=== PATIENT | female | born 1930 | race Caucasian/White ===

== ENCOUNTER 2017-07-26 14:22 | Emergency (ER) | payer MEDICARE ==
--- NOTE | 2017-07-26 14:26 | Emergency Department Record ---
History of Present Illness - General Stated Complaint: DIZZY/CHEST PAIN Time Seen by Provider: 07/26/17 14:23 Source: Patient, Family Mode of Arrival: Ambulatory Limitations: No limitations - History of Present Illness Initial Comments: 86 yo female presents from the [facility] with dizziness. Over the last 2 weeks she is having episodes of dizziness that is light room spinning. The episodes come and go. They last a few minutes when they occur. No syncope. No weakness of the face, arms or legs. No vision or speech changes. No shortness of breath. No history of stroke. She does have CAD with one prior stent. She had a normal Lexiscan on 04/24/17 this year. She has had some chest pain that she can only describe as feeling like "fingers spreading on her chest ". It is not with activity or exertion. It occurs 1-2 per day lasting a few minutes at most. It is not associated with the room spinning feeling. Nothing seems to bring on the pain or resolve it. Deep breathing improves the pain. She is not short of breath. MD Complaint: Dizziness -: Week(s) (2) Timing: Now resolved Description: Other (Occurred randomly ) History of Same: No History of Trauma: No Severity: Moderate Improves With: Remaining still Worsens With: Movement - [place] Coma Scale Eye Response: (4) Open spontaneously Motor Response: (6) Obeys commands Verbal Response: (5) Oriented Marshal Total: 15 - Symptoms of Stroke Symptoms of stroke: Dizziness - Related Data Home Medications Medication Instructions Recorded Confirmed Last Taken Acetaminophen [Tylenol Extra 500 mg PO QHS 07/26/17 07/26/17 Unknown Strength] Furosemide [Lasix] 40 mg PO DAILY 07/26/17 07/26/17 Unknown Meloxicam [Mobic] 15 mg PO DAILY 07/26/17 07/26/17 Unknown Omeprazole 10 mg PO DAILY 07/26/17 07/26/17 Unknown Prednisone 2.5 mg PO ASDIR 07/26/17 07/26/17 Unknown Tramadol HCl 1 - 2 tab PO Q6H PRN 07/26/17 07/26/17 Unknown Allergies Allergy/AdvReac Type Severity Reaction Status Date / Time codeine Allergy Unknown ALTERED Verified 07/26/17 14:25 MENTAL STATUS Review of Systems Constitutional: Denies: Chills, Fever, Malaise, Weakness Eyes: Denies: Eye discharge ENT: Denies: Congestion, Throat pain Respiratory: Denies: Cough, Dyspnea, Hemoptysis Cardiovascular: Reports: Chest pain. Denies: Arrhythmia, Dyspnea on exertion, Edema, Palpitations, Syncope Endocrine: Denies: Fatigue Gastrointestinal: Reports: Nausea. Denies: Abdominal pain, Diarrhea, Vomiting Genitourinary: Denies: Dysuria, Urgency Musculoskeletal: Denies: Arthralgia, Back pain, Myalgia, Neck pain Skin: Denies: Bruising, Change in color, Rash Neurological: Reports: Headache (occasional rare and mild), Vertigo. Denies: Abnormal gait, Confusion, Numbness, Paresthesias, Seizure, Tingling, Tremors, Weakness Psychiatric: Denies: Anxiety Hematological/Lymphatic: Denies: Anemia, Blood Clots, Easy bleeding, Easy bruising, Swollen glands Past Medical History - SOCIAL HISTORY Smoking Status: Never smoker - RESPIRATORY Hx Respiratory Disorders: No - CARDIOVASCULAR Hx Cardio Disorders: Yes Hx Cardiac Cath: Yes Hx Hypertension: Yes Comment:: hypercholesteremia - NEURO Hx Neuro Disorders: Yes Hx Neuropathy: Yes - GI Hx GI Disorders: Yes Hx Reflux: Yes Hx Ulcer: Yes - Hx Genitourinary Disorders: Yes Hx Bladder Problem: Yes - ENDOCRINE Hx Endocrine Disorders: Yes Hx Diabetes: Yes - MUSCULOSKELETAL Hx Musculoskeletal Disorders: Yes Hx Arthritis: Yes - PSYCH Hx Psych Problems: No - HEMATOLOGY/ONCOLOGY Hx Hematology/Oncology Disorders: Yes Hx Cancer: Yes (bladder) Physical Exam - General General Appearance: Alert, Oriented x3, Cooperative, No acute distress Limitations: No limitations - Head Head exam: Atraumatic, Normocephalic, Normal inspection - Eye Eye exam: Normal appearance, PERRL, EOMI, Nystagmus (righward gaze). negative: Conjunctival injection, Periorbital swelling, Periorbital tenderness Pupils: Normal accommodation. negative: Irregular, Unequal - ENT ENT exam: Normal exam, Mucous membranes moist Ear exam: Normal external inspection Nasal Exam: Normal inspection Mouth exam: Normal external inspection - Neck Neck exam: Normal inspection, Full ROM. negative: Tenderness - Respiratory Respiratory exam: Normal lung sounds bilaterally. negative: Respiratory distress - Cardiovascular Cardiovascular Exam: Regular rate, Normal rhythm, Normal heart sounds Peripheral Pulses: 2+: Radial (R), Radial (L) - GI/Abdominal GI/Abdominal exam: Soft. negative: Tenderness - Rectal Rectal exam: Deferred - exam: Deferred - Extremities Extremities exam: Normal inspection, Full ROM, Normal capillary refill. negative: Pedal edema, Tenderness - Back Back exam: Reports: Normal inspection, Full ROM. Denies: Muscle spasm, Rash noted, Tenderness - Neurological Neurological exam: Alert, CN II-XII intact, Normal gait, Oriented X3, Reflexes normal. negative: Altered, Motor sensory deficit - Psychiatric Psychiatric exam: Normal affect, Normal mood. negative: Agitated, Anxious - Skin Skin exam: Dry, Intact, Normal color, Warm Course - Reevaluation(s) Reevaluation #1: 07/26/17 14:45 EKG NSR, rate 68, intervals normal, axis left, ST NS anterior changes. comparison 04/24/17 similar 07/26/17 14:47 The labs were reviewed No acute changes on the labs The CBC,CMP,Tropoinn are negative 07/26/17 15:35 Reevaluation #2: The Head CT scan was read as no acute changes. Chronic small vessel white mater changes. No sign of stroke, mass, or hemorrhage I [facility] Appointment was made for 07/[address] Santos 07/26/17 15:39 07/26/17 15:52 I discussed the results with the patient and her sister I offered admit her for further observation of her symptoms in the hospital or transfer her to [facility] We discussed this could be vertigo but other causes can not be fully ruled out. She stated she is not willing to stay in the hospital at this time and prefers follow up as an outpatient Her chest symptoms are very atypical and she had a normal perfusion stress test in April. She lives with her sister and states she feels very safe and prefers CT home to follow up. We discussed that the ED is always available for a re- evaluation if she has any concerns. Medical Decision Making - Lab Data Result diagrams: 07/26/17 14:49 07/26/17 14:48 Disposition Disposition: Discharge Clinical Impression: Vertigo, Atypical chest pain Disposition: Home, Self-Care Condition: (1) Good Instructions: Vertigo (ED) Additional Instructions: Return immediately if worse or if symptoms last longer that 5 minutes Follow up on SaturdayJuly 31 at 9am at the [facility] with Dr Santos Take the Antivert every 8-12 hours if needed. Caution as it causes drowsiness in some people Time of Disposition: 15:52 Quality - Quality Measures Quality Measures: N/A - Blood Pressure Screening Does Patient Have Any of the Following: No Blood Pressure Classification: Pre-Hypertensive BP Reading Systolic Measurement: 184 Diastolic Measurement: 87 Screening for High Blood Pressure: < Pre-Hypertensive BP, F/U Documented > [ G8950] Pre-Hypertensive Follow-up Interventions: Referral to alternative/primary care provider.
[2017-07-26 14:57] LABS: BASO % 0.5 % (0-6); EOS % 2.2 % (0-6); GRAN % 76.4 % (47-80); HEMOGLOBIN 12.5 gm/dl (11.6-16.0); LYMPH % 13.3 % (16-45); MEAN CORPUSCULAR HEMOGLOBIN 31.3 pg (27-33); MEAN CORPUSCULAR HGB CONC 32.9 g/dl (32-36); MEAN PLATELET VOLUME 10.7 fl (7.4-10.4); MONO % 7.6 % (0-9); PLATELET COUNT 168 K/uL (130-400); RED CELL DISTRIBUTION WIDTH 12.7 % (11.5-14.5); WHITE BLOOD COUNT W/O DIFF 8.1 K/uL (4.2-12.2)
[2017-07-26] MEDS ORDERED: MECLIZINE 25 MG TABLET PO ONE (15:15)
[2017-07-26 15:26] LABS: ALBUMIN 4.3 g/dL (4.0-5.0); ALKALINE PHOSPHATASE 73 U/L (35-104); ALT/SGPT 22 U/L (<33); AST/SGOT 18 U/L (10.0-35.0); BLOOD UREA NITROGEN 44.7 mg/dL (17.4-49.2); CREATININE 0.9 mg/dL (0.5-0.9); EST GLOMERULAR FILTRATION RATE > 60 mL/min; GLUCOSE,RANDOM 98 mg/dL (74-109); TOTAL PROTEIN 6.4 g/dL (6.6-8.7)
[2017-07-26 15:27] LABS: TROPONIN I < 0.30 ng/mL (0.00-0.300)
--- NOTE | 2017-07-27 02:56 | CT SCAN REPORT ---
DATE: 07/26/2017 at 1510. EXAM: CT OF THE HEAD WITHOUT CONTRAST. HISTORY: Episodes of vertigo for two weeks. TECHNIQUE: Routine noncontrast CT examination of the head. COMPARISON: None. FINDINGS: There is mild dilatation of the subarachnoid spaces consistent with generalized atrophy. The ventricles are not enlarged. Mild periventricular and subcortical white matter lucencies are scattered in each cerebral hemisphere. These are nonspecific but likely areas of chronic small-vessel ischemia. No abnormal extra-axial fluid collection is seen. The visualized paranasal sinuses and mastoid air cells are clear. The orbits, as visualized, are unremarkable with the exception of bilateral cataract surgery changes. IMPRESSION: 1. NO CT EVIDENCE OF ACUTE MAJOR VESSEL INFARCTION, INTRACRANIAL HEMORRHAGE, NOR MASS. 2. GENERALIZED ATROPHY. MILD WHITE MATTER LUCENCIES SCATTERED IN EACH CEREBRAL HEMISPHERE ARE NONSPECIFIC BUT ARE LIKELY AREAS OF CHRONIC SMALL- VESSEL ISCHEMIA. JOB NUMBER: [id number] [facility]
== END 2017-07-26 16:14 | disposition home or self-care (01) ==
LOC: ER 14:22
DX: R42 Dizziness and giddiness (principal); R07.89 Other chest pain; R11.0 Nausea
CPT/HCPCS: 70450; 80053; 83735; 84484; 85025; 93005; 93010; 99284

== ENCOUNTER 2017-07-27 15:52 | Inpatient (IN) | payer MEDICARE ==
--- NOTE | 2017-07-27 16:15 | Emergency Department Record ---
History of Present Illness - General Chief Complaint: Abdominal Pain Stated Complaint: DIZZY,ABDOMINAL PAIN Time Seen by Provider: 07/27/17 16:01 Source: Patient Mode of Arrival: Ambulatory Limitations: No limitations - History of Present Illness Initial Comments: The patient is here due to not feeling well for one day. She has had a problem with chronic dizziness for weeks but that is improved now. She did take her BP this AM and it was very high so she was concerned. Additionally she has had some diffuse abdominal pain with constipation so she decided to come to the ER. There is no reported CP, SOB, visual changes, fever, chills, dysuria or hematuria. The patient did refuse hospital admission yesterday for the dizziness and does state it is a little improved today with the Antivert. The patient has had a JAYDA and APPY in the past. MD Complaint: Abdominal pain Onset/Timin -: Days(s) Location: Diffuse Consistency: Constant Associated Symptoms: Constipation - Related Data Home Medications Medication Instructions Recorded Confirmed Last Taken Aspirin [Adult Low Dose Aspirin EC] 81 07/27/17 Unknown Previous Rx's Medication Instructions Recorded Meclizine HCl [Antivert] 25 mg PO Q8H #15 tablet 07/26/17 Allergies Allergy/AdvReac Type Severity Reaction Status Date / Time codeine Allergy Unknown ALTERED Verified 07/27/17 16:08 MENTAL STATUS Travel Screening - Travel/Exposure Within Last 30 Days Have you traveled within the last 30 days?: No Review of Systems Constitutional: Denies: Chills, Fever Eyes: Denies: Eye discharge ENT: Denies: Congestion Respiratory: Denies: Cough, Dyspnea Past Medical History - SOCIAL HISTORY Smoking Status: Never smoker Alcohol Use: None Drug Use: None - RESPIRATORY Hx Respiratory Disorders: No - CARDIOVASCULAR Hx Cardio Disorders: Yes Hx Cardiac Cath: Yes Hx Hypertension: Yes Comment:: hypercholesteremia - NEURO Hx Neuro Disorders: Yes Hx Neuropathy: Yes - GI Hx GI Disorders: Yes Hx Reflux: Yes Hx Ulcer: Yes - Hx Genitourinary Disorders: Yes Hx Bladder Problem: Yes - ENDOCRINE Hx Endocrine Disorders: Yes Hx Diabetes: Yes - MUSCULOSKELETAL Hx Musculoskeletal Disorders: Yes Hx Arthritis: Yes - PSYCH Hx Psych Problems: No - HEMATOLOGY/ONCOLOGY Hx Hematology/Oncology Disorders: Yes Hx Cancer: Yes (bladder) Family Medical History Any Significant Family History?: Yes *Diabetes Comment: uncle Hx Heart Disease: Father, Brother/Sister Physical Exam - General General Appearance: Alert, Oriented x3, Cooperative, No acute distress - Head Head exam: Atraumatic, Normocephalic, Normal inspection - Eye Eye exam: Normal appearance, PERRL, EOMI. negative: Nystagmus - Neck Neck exam: Normal inspection, Full ROM. negative: Tenderness - Respiratory Respiratory exam: Normal lung sounds bilaterally. negative: Respiratory distress - Cardiovascular Cardiovascular Exam: Regular rate, Normal rhythm, Normal heart sounds - GI/Abdominal GI/Abdominal exam: Soft, Normal bowel sounds. negative: Distended, Guarding, Organomegaly, Rebound, Rigid, Tenderness - Neurological Neurological exam: Alert, Normal gait. negative: Abnormal gait, Motor sensory deficit Course Vital Signs 07/27/17 15:59 Temperature 98.4 F Pulse Rate 98 H Respiratory 20 Rate Blood Pressure 150/80 Pulse Ox 96 - Reevaluation(s) Reevaluation #1: The patient is doing OK at this time. Her care was turned over to Dr. Nolen at 17:00. 07/27/17 17:10 Medical Decision Making - Lab Data Result diagrams: 07/27/17 16:38 07/27/17 16:38 Disposition Forms: Patient Portal Access Quality - Quality Measures Quality Measures: N/A - Blood Pressure Screening View Details: Yes Does Patient Have Any of the Following: No Blood Pressure Classification: Pre-Hypertensive BP Reading Systolic Measurement: 150 Diastolic Measurement: 80 Screening for High Blood Pressure: < Pre-Hypertensive BP, F/U Documented > [ G8950] Pre-Hypertensive Follow-up Interventions: Referral to alternative/primary care provider.
[2017-07-27] MEDS ORDERED: ONDANSETRON HCL IV 4 MG/2 ML VIAL IV ONE (16:21)
[2017-07-27] MEDS ORDERED: 0.9 % SODIUM CHLORIDE 1,000 ML BAG IV ONE (16:21)
[2017-07-27] MEDS ORDERED: SUCRALFATE 1 G/10 ML UD PO ONE (16:21)
[2017-07-27 16:51] LABS: HEMOGLOBIN 13.2 gm/dl (11.6-16.0); MEAN CELL VOLUME 94.6 fl (81-97); MEAN CORPUSCULAR HEMOGLOBIN 31.2 pg (27-33); MEAN PLATELET VOLUME 11.5 fl (7.4-10.4); PLATELET COUNT 173 K/uL (130-400); RED BLOOD COUNT 4.23 M/uL (3.80-5.40); RED CELL DISTRIBUTION WIDTH 12.9 % (11.5-14.5); WHITE BLOOD COUNT W/O DIFF 13.4 K/uL (4.2-12.2)
[2017-07-27 17:01] LABS: URINE APPEARANCE CLEAR; URINE BILIRUBIN NEGATIVE (NEGATIVE); URINE BLOOD NEGATIVE (NEGATIVE); URINE COLOR YELLOW; URINE GLUCOSE (UA) NEGATIVE (NEGATIVE); URINE KETONE NEGATIVE (NEGATIVE); URINE LEUKOCYTE ESTERASE NEGATIVE (NEGATIVE); URINE NITRITE NEGATIVE (NEGATIVE); URINE PROTEIN NEGATIVE (NEGATIVE); URINE UROBILINOGEN 0.2 E.U./dL (0.20 - 1.00)
[2017-07-27 17:14] LABS: ALKALINE PHOSPHATASE 77 U/L (35-104); ALT/SGPT 21 U/L (<33); AST/SGOT 20 U/L (10.0-35.0); BILIRUBIN,DIRECT 0.2 mg/dL (0-0.3); BLOOD UREA NITROGEN 36.7 mg/dL (17.4-49.2); CREATININE 0.8 mg/dL (0.5-0.9); EST GLOMERULAR FILTRATION RATE > 60 mL/min; GLUCOSE,RANDOM 246 mg/dL (74-109); LIPASE 17 U/L (13-60); TOTAL PROTEIN 6.5 g/dL (6.6-8.7)
--- NOTE | 2017-07-27 17:24 | Emergency Department Record ---
History of Present Illness - General Chief Complaint: Abdominal Pain Stated Complaint: DIZZY,ABDOMINAL PAIN Time Seen by Provider: 07/27/17 16:01 Source: Patient Mode of Arrival: Ambulatory Limitations: No limitations - History of Present Illness Complaint: Abdominal pain Onset/Timin -: Days(s) Location: Diffuse Consistency: Constant Associated Symptoms: Constipation - Related Data Patient : No Home Medications Medication Instructions Recorded Confirmed Last Taken Aspirin [Adult Low Dose Aspirin EC] 81 07/27/17 Unknown Previous Rx's Medication Instructions Recorded Meclizine HCl [Antivert] 25 mg PO Q8H #15 tablet 07/26/17 Allergies Allergy/AdvReac Type Severity Reaction Status Date / Time codeine Allergy Unknown ALTERED Verified 07/27/17 16:08 MENTAL STATUS Travel Screening - Travel/Exposure Within Last 30 Days Have you traveled within the last 30 days?: No Review of Systems Constitutional: Denies: Chills, Fever Eyes: Denies: Eye discharge ENT: Denies: Congestion Respiratory: Denies: Cough, Dyspnea Past Medical History - SOCIAL HISTORY Smoking Status: Never smoker Alcohol Use: None Drug Use: None - RESPIRATORY Hx Respiratory Disorders: No - CARDIOVASCULAR Hx Cardio Disorders: Yes Hx Cardiac Cath: Yes Hx Hypertension: Yes Comment:: hypercholesteremia - NEURO Hx Neuro Disorders: Yes Hx Neuropathy: Yes - GI Hx GI Disorders: Yes Hx Reflux: Yes Hx Ulcer: Yes - Hx Genitourinary Disorders: Yes Hx Bladder Problem: Yes - ENDOCRINE Hx Endocrine Disorders: Yes Hx Diabetes: Yes - MUSCULOSKELETAL Hx Musculoskeletal Disorders: Yes Hx Arthritis: Yes - PSYCH Hx Psych Problems: No - HEMATOLOGY/ONCOLOGY Hx Hematology/Oncology Disorders: Yes Hx Cancer: Yes (bladder) Family Medical History Any Significant Family History?: Yes *Diabetes Comment: uncle Hx Heart Disease: Father, Brother/Sister Physical Exam - General Limitations: No limitations Course Vital Signs 07/27/17 07/27/17 15:59 16:56 Temperature 98.4 F Pulse Rate 98 H Pulse Rate [ 85 Pulse Ox Probe] Respiratory 20 Rate Blood Pressure 150/80 Blood Pressure 158/90 [Right Arm] Pulse Ox 96 95 - Reevaluation(s) Reevaluation #1: 86 yo female patient was signed out at 5pm by Dr Cassidy She presents with continued dizziness and now with diffuse abdominal pain The labs and UA were reviewed with Dr. Cassidy. CT of the Abdomen and Pelvis is pending. 07/27/17 17:23 The patient is in CT 07/27/17 19:[address] scan is consistent with acute diverticulitis I recommend admission for IV antibiotics given infection, weakness, and dizzy episodes. 07/27/17 19:46 Reevaluation #2: I CARLTON Aburto V of the admission service for admission for dizziness and acute diverticullitis 07/27/17 21:16 Medical Decision Making - Lab Data Result diagrams: 07/27/17 16:38 07/27/17 16:38 Lab Results 07/27/17 07/27/17 07/27/17 Range/Units 16:38 16:38 16:38 WBC 13.4 H (4.2-12.2) K/uL RBC 4.23 (3.80-5.40) M/uL Hgb 13.2 (11.6-16.0) gm/dl Hct 40.0 (35.0-47.0) % MCV 94.6 (81-97) fl MCH 31.2 (27-33) pg MCHC 33.0 (32-36) g/dl RDW 12.9 (11.5-14.5) % Plt Count 173 (130-400) K/uL MPV 11.5 H (7.4-10.4) fl Neutrophils % 90.0 H (47-80) % Eosinophils % Not Reportable Basophils % Not Reportable Lymphocytes 4.0 L (16-45) % Monocytes 6.0 (0-9) % Sodium 133 L (136-145) mmol/L Potassium 4.5 (3.4-4.5) mmol/L Chloride 95 L (98-107) mmol/L Carbon Dioxide 26.0 (22-29) mmol/L Anion Gap 12.0 (7-16) BUN 36.7 (17.4-49.2) mg/dL Creatinine 0.8 (0.5-0.9) mg/dL Estimated GFR > 60 mL/min Random Glucose 246 H (74-109) mg/dL Calcium 9.0 (8.8-10.2) mg/dL Total Bilirubin 0.60 (0.2-1.0) mg/dL Direct Bilirubin 0.2 (0-0.3) mg/dL AST 20 (10.0-35.0) U/L ALT 21 (<33) U/L Alkaline Phosphatase 77 (35-104) U/L Total Protein 6.5 L (6.6-8.7) g/dL Albumin 4.0 (4.0-5.0) g/dL Lipase 17 (13-60) U/L Urine Color Yellow Urine Appearance Clear Urine pH 6.5 (5.0-8.0) Ur Specific [place] 1.010 (1.002-1.030) Urine Protein Negative (NEGATIVE) Urine Glucose (UA) Negative (NEGATIVE) Urine Ketones Negative (NEGATIVE) Urine Blood Negative (NEGATIVE) Urine Nitrite Negative (NEGATIVE) Urine Bilirubin Negative (NEGATIVE) Urine Urobilinogen 0.2 (0.20 - 1.00) E.U./dL Ur Leukocyte Esterase Negative (NEGATIVE) Disposition Disposition: Admit Clinical Impression: Vertigo Diverticulitis Qualifiers: Diverticulitis site: large intestine Diverticulitis bleeding: without bleeding Diverticulitis complication: without perforation or abscess Qualified Code(s): K57.32 - Diverticulitis of large intestine without perforation or abscess without bleeding Disposition: Home, Self-Care Decision to Admit: Admit from ER Decision to Admit Date: 07/27/17 Decision to Admit Time: 19:47 Condition: (1) Good Time of Disposition: 19:47 Quality - Quality Measures Quality Measures: N/A - Blood Pressure Screening Does Patient Have Any of the Following: Active Dx of HTN Blood Pressure Classification: Pre-Hypertensive BP Reading Systolic Measurement: 150 Diastolic Measurement: 80 Screening for High Blood Pressure: Patient Exclusion, Hx of HTN [G9744] Pre-Hypertensive Follow-up Interventions: Referral to alternative/primary care provider.
[2017-07-27] MEDS ORDERED: METRONIDAZOLE IVPB 500 MG/100 ML BAG IVPB ONE (19:48)
[2017-07-27] MEDS ORDERED: CIPROFLOXACIN LACTATE/D5W 400 MG/200 ML BAG IVPB ONE (19:48)
[2017-07-27] MEDS ORDERED: MORPHINE SULFATE 5 MG/ML PFS IM PRN (20:21)
[2017-07-27] MEDS ORDERED: ONDANSETRON HCL IV 4 MG/2 ML VIAL IVP PRN (20:21)
[2017-07-27] MEDS: 0.9 % SODIUM CHLORIDE 1000ML 1,000 ML IV PRN (21:16)
[2017-07-28] MEDS ORDERED: ACETAMINOPHEN 1,000 MG/100 ML BTL IVPB ONE (00:23)
[2017-07-28] MEDS: GABAPENTIN 300 MG CAPSULE PO SCH ×4 (01:03→21:14)
[2017-07-28] MEDS: ACETAMINOPHEN 500 MG TABLET PO PRN ×2 (04:45→22:19)
[2017-07-28] MEDS: METRONIDAZOLE IVPB 500 MG/100 ML BAG IVPB SCH ×3 (04:45→21:13)
[2017-07-28] MEDS ORDERED: MAGNESIUM HYDROXIDE 30 ML UDC PO PRN (05:06)
[2017-07-28] MEDS: PANTOPRAZOLE SODIUM 40 MG TABLET PO SCH (06:15)
[2017-07-28 06:24] LABS: HEMATOCRIT 34.5 % (35.0-47.0); HEMOGLOBIN 11.1 gm/dl (11.6-16.0); MEAN CELL VOLUME 95.8 fl (81-97); MEAN CORPUSCULAR HEMOGLOBIN 30.8 pg (27-33); MEAN CORPUSCULAR HGB CONC 32.2 g/dl (32-36); MEAN PLATELET VOLUME 11.3 fl (7.4-10.4); PLATELET COUNT 139 K/uL (130-400); RED CELL DISTRIBUTION WIDTH 13.1 % (11.5-14.5); WHITE BLOOD COUNT W/O DIFF 8.1 K/uL (4.2-12.2)
[2017-07-28 06:41] LABS: BLOOD UREA NITROGEN 25.6 mg/dL (17.4-49.2); CREATININE 0.8 mg/dL (0.5-0.9); EST GLOMERULAR FILTRATION RATE > 60 mL/min; GLUCOSE,RANDOM 119 mg/dL (74-109)
[2017-07-28 06:43] LABS: PLATELET ESTIMATE NORMAL (NORMAL)
[2017-07-28] MEDS ORDERED: LANSOPRAZOLE 15 MG PO SCH (07:00)
[2017-07-28] MEDS: CIPROFLOXACIN LACTATE/D5W 400 MG/200 ML BAG IVPB SCH ×2 (07:33→19:44)
[2017-07-28] MEDS ORDERED: LOSARTAN 100 MG PO SCH (09:00)
[2017-07-28] MEDS: METOPROLOL SUCC 25 MG TAB.ER PO SCH (09:22)
[2017-07-28] MEDS: FUROSEMIDE 40 MG TABLET PO SCH (09:22)
[2017-07-28] MEDS: LOSARTAN POTASSIUM 100 MG TABLET PO SCH (09:22)
[2017-07-28] MEDS: LEVEMIR FLEXTOUCH 100 UNIT/ML INSULIN PEN SQ SCH ×2 (09:23→10:34)
[2017-07-28] MEDS: ENOXAPARIN 40 MG/0.4 ML SYR SC SCH (09:23)
[2017-07-28] MEDS ORDERED: GABAPENTIN 300 MG PO SCH (10:00)
[2017-07-28] MEDS: 0.9 % SODIUM CHLORIDE 1000ML 1,000 ML IV PRN ×2 (10:40→23:47)
--- NOTE | 2017-07-28 10:47 | History & Physical ---
History of Present Illness - Date of Service Date of Service for History & Physical: 07/28/17 - History of Present Illness Admitting Diagnosis: Acute Diverticulitis, Dizziness History of Present Illness: 86 y/o female with CC dizziness, diffuse abdominal pain with constipation admitted for acute diverticulitis. Past medical history includes hypercholesterolemia, neuropathy, GERD, peptic ulcer, bladder cancer, DM-2, osteoarthritis, diverticulosis. Prior to arrival had been dizzy for weeks, came to ED the day prior with non- acute findings and sent home with antivert. She Reports at that time she was having abdominal pain in the upper quadrant but did not mention it to the staff. Returned the day of admission with increase feeling of being unwell, increasing upper abdominal pain, elevated BP, constipation. Denies chest pain, shortness of breath, vision changes, fever, dysuria, hematuria. Dizziness has somewhat improved overnight with Antivert. Last colonoscopy about 2 years ago. Reports history of diverticulosis. Has never had diverticulitis before. While in the ED BP elevated as high as 172/86, asymptomatic. Afebrile. WBC 13.4 , neutrophils 90%. Na 133. U/A negative for infection. Abdominal CT + for diverticulitis. Flagyl and Cipro initiated in the ED. Admitted for IV antibiotics, weakness and dizziness 07/28/17- resting in bed comfortably. Has tolerated clear and full liquids. Denies nausea, vomiting. Did have dose of MOM last night for constipation and has moved bowels several times since admit. Abdominal pain improved. Has been afebrile. Does report feeling weak at home for the past several day with some improvement today. PCP:Dr Jimenez Travel Screening - Travel/Exposure Within Last 30 Days Have you traveled within the last 30 days?: No - Travel/Exposure Within Last Year Have you traveled outside the [place] in the last year?: No - Additonal Travel Details Have you been exposed to anyone with a communicable illness?: No Review of Systems Constitutional: Denies: Chills, Fever Eyes: Denies: Eye discharge ENT: Denies: Congestion Respiratory: Denies: Cough, Dyspnea Past Medical History - SOCIAL HISTORY Smoking Status: Never smoker Alcohol Use: None Drug Use: None - RESPIRATORY Hx Respiratory Disorders: No - CARDIOVASCULAR Hx Cardio Disorders: Yes Hx Cardiac Cath: Yes Hx Hypertension: Yes Comment:: hypercholesteremia - NEURO Hx Neuro Disorders: Yes Hx Neuropathy: Yes - GI Hx GI Disorders: Yes Hx Reflux: Yes Hx Ulcer: Yes - Hx Genitourinary Disorders: Yes Hx Bladder Problem: Yes - ENDOCRINE Hx Endocrine Disorders: Yes Hx Diabetes: Yes - MUSCULOSKELETAL Hx Musculoskeletal Disorders: Yes Hx Arthritis: Yes - PSYCH Hx Psych Problems: No - HEMATOLOGY/ONCOLOGY Hx Hematology/Oncology Disorders: Yes Hx Cancer: Yes (bladder) Family Medical History Any Significant Family History?: Yes *Diabetes Comment: uncle Hx Heart Disease: Father, Brother/Sister H&P Meds/Allergies - Allergies Allergies: Allergies Allergy/AdvReac Type Severity Reaction Status Date / Time codeine Allergy Unknown ALTERED Verified 07/27/17 16:08 MENTAL STATUS - Home Medications Home Medications Medication Instructions Recorded Confirmed Last Taken Aspirin [Adult Low Dose Aspirin EC] 81 07/27/17 Unknown Previous Rx's Medication Instructions Recorded Meclizine HCl [Antivert] 25 mg PO Q8H #15 tablet 07/26/17 - Active Medications Active Medications: Current Medications Acetaminophen (Tylenol 500mg Tab) 500 mg PO Q6H PRN PRN Reason: PAIN/TEMP Last Admin: 07/28/17 04:45 Dose: 500 mg Enoxaparin Sodium (Lovenox) 40 mg SC DAILY [facility] Last Admin: 07/28/17 09:23 Dose: 40 mg Furosemide (Lasix) 40 mg PO DAILY [facility] Last Admin: 07/28/17 09:22 Dose: 40 mg Gabapentin (Neurontin) 300 mg PO TID [facility] Last Admin: 07/28/17 09:23 Dose: 300 mg Sodium Chloride () 1,000 mls @ 100 mls/hr IV .Q10H PRN PRN Reason: LARGE VOLUME IV Last Admin: 07/28/17 10:40 Dose: 100 mls/hr Ciprofloxacin Lactate (Cipro) 400 mg in 200 mls @ 200 mls/hr IVPB 0800,2000 [facility] Stop: 08/02/17 08:01 Last Infusion: 07/28/17 08:20 Dose: Infused Metronidazole/Sodium Chloride (Flagyl) 500 mg in 100 mls @ 100 mls/hr IVPB 0500 ,1300,2100 [facility] Stop: 08/02/17 05:01 Last Infusion: 07/28/17 05:56 Dose: Infused Insulin Detemir (Levemir Flextouch) 10 unit SQ DAILY [facility] Last Admin: 07/28/17 10:34 Dose: Not Given Losartan Potassium (Losartan Potassium) 100 mg PO DAILY [facility] Last Admin: 07/28/17 09:22 Dose: 100 mg Magnesium Hydroxide (Milk Of Magnesium) 30 ml PO DAILY PRN PRN Reason: Constipation Last Admin: 07/28/17 06:47 Dose: 30 ml Metoprolol Succinate (Toprol Xl) 25 mg PO DAILY [facility] Last Admin: 07/28/17 09:22 Dose: 25 mg Morphine Sulfate (Morphine Sulfate) 2.5 mg IM Q4HR PRN PRN Reason: Abdominal Pain Stop: 08/03/17 20:22 Ondansetron HCl (Zofran) 4 mg IVP Q4H PRN PRN Reason: NAUSEA Pantoprazole Sodium (Protonix) 40 mg PO DAILYAC [facility] Last Admin: 07/28/17 06:15 Dose: 40 mg Physical Exam - Vital Signs Vital Signs: Vital Signs - Last 24 Hrs Temp Pulse Resp BP Pulse Ox 07/28/17 07:47 20 07/28/17 04:21 97.6 F 64 18 135/73 95 07/27/17 21:00 95 H 20 - General General Appearance: Alert, Oriented x3, Cooperative, No acute distress Limitations: No limitations - Head Head exam: Atraumatic, Normocephalic, Normal inspection - Eye Eye exam: Normal appearance, PERRL, EOMI. negative: Nystagmus - ENT ENT exam: Normal exam, Mucous membranes moist - Neck Neck exam: Normal inspection, Full ROM. negative: Tenderness - Respiratory Respiratory exam: Normal lung sounds bilaterally. negative: Respiratory distress - Cardiovascular Cardiovascular Exam: Regular rate, Normal rhythm, Normal heart sounds Peripheral Pulses: 2+: Dorsalis Pedis (R), Dorsalis Pedis (L) - GI/Abdominal GI/Abdominal exam: Soft, Normal bowel sounds, Distended (slight), Tenderness ( mild bilat upper quadrant tenderness). negative: Guarding, Organomegaly, Rebound, Rigid - Rectal Rectal exam: Deferred - exam: Deferred - Extremities Extremities exam: Other (Unna boot in place to RLL for chronic wound, followed by home nursing) - Neurological Neurological exam: Alert, Normal gait. negative: Abnormal gait, Motor sensory deficit - Psychiatric Psychiatric exam: Normal affect, Normal mood - Skin Skin exam: Other (Unna boot on RLE for chronic wound, dressing intact, next change due next saturday) Results - Labs Result Diagrams: 07/28/17 05:45 07/28/17 05:45 Labs Last 24 Hours: Laboratory Results - last 24 hr 07/27/17 07/28/17 07/28/17 21:26 05:45 05:45 WBC 8.1 RBC 3.60 L Hgb 11.1 L Hct 34.5 L MCV 95.8 MCH 30.8 MCHC 32.2 RDW 13.1 Plt Count 139 MPV 11.3 H Neutrophils % 85.0 H Eosinophils % Not Reportable Basophils % Not Reportable Lymphocytes 10.0 L Monocytes 5.0 Platelet Estimate Normal RBC Morphology Normal Sodium 139 Potassium 4.2 Chloride 104 Carbon Dioxide 27.0 Anion Gap 8.0 BUN 25.6 Creatinine 0.8 Estimated GFR > 60 POC Glucose 155 H Random Glucose 119 H Calcium 8.0 L 07/28/17 07:52 WBC RBC Hgb Hct MCV MCH MCHC RDW Plt Count MPV Neutrophils % Eosinophils % Basophils % Lymphocytes Monocytes Platelet Estimate RBC Morphology Sodium Potassium Chloride Carbon Dioxide Anion Gap BUN Creatinine Estimated GFR POC Glucose 126 H Random Glucose Calcium - Imaging and Cardiology CT scan - abdomen Status: Report reviewed (acute diverticulitis) VTE H&P Assessment - Risk for VTE Risk for VTE: Yes Risk Level: Moderate Risk Assessment Date: 07/28/17 Risk Assessment Time: 10:48 VTE Orders Placed or Will Be Placed: Yes Plan - Inpatient Certification Inpatient Certification: Admit to inpatient care: Based on my medical assessment, after consideration of patient's risk factors (age, co-morbidities and patient presenting symptoms and acuity), I expect that this patient will remain in the hospital greater than or equal to two midnights and that the services needed warrant inpatient care because: Patient Risk Factors: [advanced age, dizziness] Estimated length of stay: [48-72 hours] The patient may reasonably be expected to be discharged or transferred to a hospital within 96 hours after admission to [facility]. Services needed: [IV antibiotics, PT/OT] Post hospital care (if known): [] I certify that my determination is in accordance with my understanding of Medicare requirements for reasonable and necessary inpatient services. 07/28/17 10:48 - Detailed Diagnosis and Plan (1) Diverticulitis Current Visit: Yes Status: Acute Qualifiers: Diverticulitis site: large intestine Diverticulitis bleeding: without bleeding Diverticulitis complication: without perforation or abscess Qualified Code(s): K57.32 - Diverticulitis of large intestine without perforation or abscess without bleeding Base Code: K57.92 - DVTRCLI OF INTEST, PART UNSP, W/O PERF OR ABSCESS W/O BLEED Comment: 07/28/17 - Flagyl 500mg TID, Cipro 400mg BID - pain control - antiemetics - NS @ 100ml/hr - advance diet to soft, bland - likely discharge home tomorrow on oral antibiotic should she tolerate PO intake (2) Vertigo Current Visit: Yes Status: Acute Base Code: R42 - DIZZINESS AND GIDDINESS Comment: 07/28/17 - continue antivert - PT/OT - likely multifactoral with hx of dizziness, acute illness, is responsive to Antivert - PT/OT - assist with amb (3) DVT prophylaxis Current Visit: Yes Status: Acute Base Code: [id number] - Comment: 07/28/17 - Lovenox 40mg QD
[2017-07-28] MEDS ORDERED: AL HYDROX/MAG HYDROX 30ML UD PO ONE (16:48)
[2017-07-29] MEDS: METRONIDAZOLE IVPB 500 MG/100 ML BAG IVPB SCH (05:07)
[2017-07-29] MEDS: PANTOPRAZOLE SODIUM 40 MG TABLET PO SCH (06:41)
--- NOTE | 2017-07-29 07:23 | CT SCAN REPORT ---
EXAM: CT OF THE ABDOMEN AND PELVIS WITH CONTRAST HISTORY: DIZZINESS. ABDOMINAL PAIN. TECHNIQUE: Routine CT images of the abdomen and pelvis were obtained following intravenous administration of contrast. The amount and type of contrast are in the medical record. FINDINGS: The visualized lung bases are unremarkable. The gallbladder is surgically absent. The liver, spleen, and adrenals are unremarkable. There is fatty infiltration of the pancreas. The kidneys enhance and excrete contrast normally. There are scattered colonic diverticula. Note is made of inflammatory change within the sigmoid colon where there are numerous diverticula most consistent with acute diverticulitis. No well defined abscess or complication noted at this time. The bladder is unremarkable. The uterus is surgically absent. No abdominal or pelvic lymphadenopathy. The aorta is tortuous though enhances normally with contrast. Mild atherosclerotic calcifications. The abdominal wall soft tissues are unremarkable. Advanced lumbar spondylosis. IMPRESSION: SIGMOID DIVERTICULITIS. JOB NUMBER: [id number] MTDD
[2017-07-29] MEDS: CIPROFLOXACIN LACTATE/D5W 400 MG/200 ML BAG IVPB SCH (07:58)
[2017-07-29] MEDS: LOSARTAN POTASSIUM 100 MG TABLET PO SCH (09:46)
[2017-07-29] MEDS: METOPROLOL SUCC 25 MG TAB.ER PO SCH (09:46)
[2017-07-29] MEDS: ENOXAPARIN 40 MG/0.4 ML SYR SC SCH (09:46)
[2017-07-29] MEDS: GABAPENTIN 300 MG CAPSULE PO SCH (09:46)
[2017-07-29] MEDS: FUROSEMIDE 40 MG TABLET PO SCH (09:46)
[2017-07-29] MEDS: LEVEMIR FLEXTOUCH 100 UNIT/ML INSULIN PEN SQ SCH (10:45)
--- NOTE | 2017-07-29 10:58 | Discharge Summary ---
Providers Discharge Summary Date: 07/29/17 Date of admission: 07/27/17 20:29 Expected Date of Discharge: 07/29/17 Attending physician: MISHA SALAS Primary care physician: JOSE HIDALGO D.O. Physical Exam - Vital Signs Vital Signs: Vital Signs - Last 24 Hrs Temp Pulse Resp BP Pulse Ox 07/29/17 06:00 97.6 F 64 18 150/72 96 07/28/17 20:28 18 07/28/17 20:00 98.1 F 77 18 149/60 95 07/28/17 12:50 97.6 F 93 H 101/49 93 L - General General Appearance: Alert, Oriented x3, Cooperative, No acute distress Limitations: No limitations - Head Head exam: Atraumatic, Normocephalic, Normal inspection - Eye Eye exam: Normal appearance, PERRL, EOMI. negative: Nystagmus - ENT ENT exam: Normal exam, Mucous membranes moist - Neck Neck exam: Normal inspection, Full ROM. negative: Tenderness - Respiratory Respiratory exam: Normal lung sounds bilaterally. negative: Respiratory distress - Cardiovascular Cardiovascular Exam: Regular rate, Normal rhythm, Normal heart sounds Peripheral Pulses: 2+: Dorsalis Pedis (R), Dorsalis Pedis (L) - GI/Abdominal GI/Abdominal exam: Soft, Normal bowel sounds, Tenderness (mild bilat upper quadrant tenderness). negative: Distended, Guarding, Organomegaly, Rebound, Rigid - Rectal Rectal exam: Deferred - exam: Deferred - Extremities Extremities exam: Other (Unna boot in place to RLL for chronic wound, followed by home nursing) - Neurological Neurological exam: Alert, Normal gait. negative: Abnormal gait, Motor sensory deficit - Psychiatric Psychiatric exam: Normal affect, Normal mood - Skin Skin exam: Other (Unna boot on RLE for chronic wound, dressing intact, next change due next saturday) Hospitalization - Hospitalization Admission Diagnosis: Acute Diverticulitis, Dizziness - Problem List/Discharge Diagnosis (1) Diverticulitis Current Visit: Yes Status: Acute Discharge Diagnosis: Diverticulitis site: large intestine Diverticulitis bleeding: without bleeding Diverticulitis complication: without perforation or abscess Qualified Code(s): K57.32 - Diverticulitis of large intestine without perforation or abscess without bleeding Base Code: K57.92 - DVTRCLI OF INTEST, PART UNSP, W/O PERF OR ABSCESS W/O BLEED Comment: 07/29/17 - WBC normalized - pain significantly improved - tolering soft diet - discharge home today on PO Flagyl and Cipro - follow up with PCP 1-2 weeks (2) Vertigo Current Visit: Yes Status: Acute Base Code: R42 - DIZZINESS AND GIDDINESS Comment: 07/29/17 - resolved - was likely a constitutional symptom (3) DVT prophylaxis Current Visit: Yes Status: Acute Base Code: [id number] - Comment: 07/29/17 - Lovenox 40mg during hospitalization - Hospitalization Course Disposition: Home, Self-Care Abnormal Labs: Abnormal Lab Results 07/27/17 07/28/17 07/28/17 Range/Units 21:26 05:45 05:45 RBC 3.60 L (3.80-5.40) M/uL Hgb 11.1 L (11.6-16.0) gm/dl Hct 34.5 L (35.0-47.0) % MPV 11.3 H (7.4-10.4) fl Neutrophils % 85.0 H (47-80) % Lymphocytes 10.0 L (16-45) % POC Glucose 155 H (70-110) mg/dL Random Glucose 119 H (74-109) mg/dL Calcium 8.0 L (8.8-10.2) mg/dL 07/28/17 07/29/17 Range/Units 07:52 08:07 RBC (3.80-5.40) M/uL Hgb (11.6-16.0) gm/dl Hct (35.0-47.0) % MPV (7.4-10.4) fl Neutrophils % (47-80) % Lymphocytes (16-45) % POC Glucose 126 H 129 H (70-110) mg/dL Random Glucose (74-109) mg/dL Calcium (8.8-10.2) mg/dL Condition at Discharge: (2) Stable Discharge Medications - Discharge Medications Prescriptions: Ciprofloxacin HCl [Cipro] 500 mg PO Q12HR #12 tablet Metronidazole [Flagyl] 500 mg PO TID #18 tablet Home Medications: Ambulatory Orders Atorvastatin Calcium 20 mg PO QHS 07/21/15 [Last Taken 09/18/15] Insulin Glargine,Hum.rec.anlog [Lantus] 10 unit SQ DAILY 07/21/15 [Last Taken ] Lansoprazole [Prevacid] 30 mg PO DAILY 07/21/15 [Last Taken 09/18/15] Losartan Potassium [Cozaar] 100 mg PO DAILY 07/21/15 [Last Taken 09/18/15] Metoprolol Succinate [Toprol Xl] 25 mg PO DAILY 07/21/15 [Last Taken 09/18/15] Multivitamin [Multi-Vitamin Daily] 1 each PO DAILY 07/21/15 [Last Taken 09/18/15 ] Gabapentin 300 mg PO TID cap 09/27/16 [Last Taken Unknown] Furosemide [Lasix] 40 mg PO DAILY 07/26/17 [Last Taken Unknown] Meclizine HCl [Antivert] 25 mg PO Q8H #15 tablet 07/26/17 [Last Taken Unknown] Meloxicam [Mobic] 15 mg PO DAILY 07/26/17 [Last Taken Unknown] Omeprazole 10 mg PO DAILY 07/26/17 [Last Taken Unknown] Prednisone 2.5 mg PO ASDIR 07/26/17 [Last Taken Unknown] Aspirin [Adult Low Dose Aspirin EC] 81 07/27/17 [Last Taken Unknown] Ciprofloxacin HCl [Cipro] 500 mg PO Q12HR #12 tablet 07/29/17 [Last Taken Unknown] Furosemide [Lasix] 40 mg PO DAILY 07/29/17 [Last Taken Unknown] Gabapentin [Neurontin] 300 mg PO TID 07/29/17 [Last Taken Unknown] Insulin Detemir [Levemir Flextouch] 10 unit SQ DAILY ml 07/29/17 [Last Taken Unknown] Metoprolol Succinate [Toprol Xl] 25 mg PO DAILY tab.er.24h 07/29/17 [Last Taken Unknown] Metronidazole [Flagyl] 500 mg PO TID #18 tablet 07/29/17 [Last Taken Unknown] Discharge Plan - Discharge Instructions Activity at Discharge: Increase Activity as Tolerated Diet at Discharge: Advance to Usual Diet Instructions: Diverticulitis (DC), Vertigo (DC) Quality Measures - Quality Measures Quality Measures: Advance Directives, Documentation of Current Medications in Medical Record, Elder Maltreatment Screen and Follow-Up Plan, Screening for High Blood Pressure and F/U Documented - Current Medications Quality Measure: Measure #130: Documentation of Current Medications Documentation of Current Medications: <Current Medications Documented/Reviewed> [G8427] - Blood Pressure Screening Quality Measure: Screening for High Blood Pressure and Follow-Up Documented Does Patient Have Any of the Following: No Blood Pressure Classification: Pre-Hypertensive BP Reading Systolic Measurement: 150 Diastolic Measurement: 80 Screening for High Blood Pressure: < Pre-Hypertensive BP, F/U Documented > [ [id number]] Pre-Hypertensive Follow-up Interventions: Follow-up with rescreen every year. - Advance Directives Quality Measure: Measure #47: Care Plan Advance Directives Established: No Advance Directives Information Provided To Patient: No Advance Directives on File: No Living Will: No Power of Senior Program Manager: Yes Power of Senior Program Manager Name: Silvia Marcum Advance Care Planning: <Care Plan/Decision Maker Documented; Discussed & Documented> [[id number]] - Elder Abuse Suspicion Index Screening: Elder Abuse Suspicion Index Screening Rely on people for bathing, dressing, shopping, banking, etc: No Prevented from getting food, clothes, medication, etc: No Made to feel shamed or threatened by someone: No Forced to sign papers or use money against will: No Feel afraid, touched in ways not wanted or hurt physically: No Poor eye contact, withdrawn, malnourished, cuts or bruises: No Screening Result: Negative result EASI Reference Information: Taina COOK, Dayo C, Arturo D, Vasquez Jain.Development and validation of a tool to assist physicians identification of elder abuse: The Elder Abuse Suspicion Index (EASI ). Journal of Elder Abuse and Neglect, 2008; 20 (3): 276-300. - Elder Maltreatment Screen Quality Measures: Elder Maltreatment Screen and Follow-Up Plan Elder Maltreatment Screen: <Negative, No Follow-Up Plan Required> [R8299]
== END 2017-07-29 12:30 | disposition home or self-care (01) | DRG 392 ==
LOC: ER 15:52 → MEDSURG 20:29
PROVIDERS: ADMIT Family Medicine; ATTEND Family Medicine
DX: K57.32 Diverticulitis of large intestine without perforation or abscess without bleeding (principal); R42 Dizziness and giddiness; E11.9 Type 2 diabetes mellitus without complications; Z79.4 Long term (current) use of insulin; I10 Essential (primary) hypertension; G62.9 Polyneuropathy, unspecified; Z85.51 Personal history of malignant neoplasm of bladder
CPT/HCPCS: 99285 ×2; 96365; 96366; 96375; 96361; 83690; 80076; 80048; 81003; 85027; 74177; Q9967; J0744; J2405; 36416; 82948; 99223; 99239; J1650; J7030

== ENCOUNTER 2017-10-04 20:26 | Emergency (ER) | payer MEDICARE ==
[2017-10-04 21:13] LABS: BASO % 0.8 % (0-6); EOS % 2.3 % (0-6); HEMATOCRIT 32.8 % (35.0-47.0); HEMOGLOBIN 10.2 gm/dl (11.6-16.0); MEAN CELL VOLUME 96.8 fl (81-97); MEAN CORPUSCULAR HGB CONC 31.1 g/dl (32-36); MEAN PLATELET VOLUME 10.3 fl (7.4-10.4); MONO % 6.9 % (0-9); PLATELET COUNT 196 K/uL (130-400); RED BLOOD COUNT 3.39 M/uL (3.80-5.40); RED CELL DISTRIBUTION WIDTH 13.7 % (11.5-14.5); WHITE BLOOD COUNT W/O DIFF 8.4 K/uL (4.2-12.2)
--- NOTE | 2017-10-04 21:21 | Emergency Department Record ---
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 she also developed pain in her legs and arms unlike anything shes ever had. Onset/Timin -: Hour(s) Location: Altered, Speech History of same: No Place: Home Severity: Mild Quality: Improving Improves With: None Worsens With: None On Anticoagulants: No Context: Change in medication Associated Symptoms: Denies other symptoms Treatments Prior to Arrival: None - [place] Coma Scale Eye Response: (4) Open spontaneously Motor Response: (6) Obeys commands Verbal Response: (5) Oriented [place] Total: 15 - Symptoms of Stroke Onset of Symptoms Date: 10/04/17 Onset of Symptoms Time: 19:30 Symptom Onset Unknown: Yes Symptoms of stroke: Incoherent Speech, Speech Dysfunction - Related Data Home Medications: Home Medications Medication Instructions Recorded Confirmed Last Taken Acetaminophen/Diphenhydramine 1 each PO 10/04/17 Unknown [Acetaminophen-Diphenhyd 500-25] Ascorbic Acid [C-1000] 1,000 mg PO 10/04/17 Unknown Insulin Glargine,Hum.rec.anlog unit SQ 10/04/17 Unknown [Lantus] Meloxicam 15 mg PO QID 10/04/17 10/04/17 Unknown Tramadol HCl [Ultram] 50 mg PO Q6H 10/04/17 10/04/17 Unknown Allergies/Adverse Reactions: Allergies Allergy/AdvReac Type Severity Reaction Status Date / Time codeine Allergy Unknown ALTERED Verified 10/04/17 20:30 MENTAL STATUS Travel Screening - Travel/Exposure Within Last 30 Days Have you traveled within the last 30 days?: No - Travel/Exposure Within Last Year Have you traveled outside the [place] in the last year?: No - Additonal Travel Details Have you been exposed to anyone with a communicable illness?: No - Travel Symptoms Symptom Screening: None Review of Systems Reviewed: No additional complaints except as noted below Constitutional: Reports: As per HPI. Denies: Chills, Fever, Malaise, Night sweats, Weakness, Weight change Eyes: Reports: As per HPI. Denies: Eye discharge, Eye pain, Photophobia, Vision change ENT: Reports: As per HPI. Denies: Congestion, Dental pain, Ear pain, Epistaxis , Hearing loss, Throat pain Respiratory: Reports: As per HPI. Denies: Cough, Dyspnea, Hemoptysis, Stridor, Wheezes Cardiovascular: Reports: As per HPI. Denies: Arrhythmia, Chest pain, Dyspnea on exertion, Edema, Murmurs, Orthopnea, Palpitations, Paroxysmal nocturnal dyspnea, Rheumatic Fever, Syncope Endocrine: Reports: As per HPI. Denies: Fatigue, Heat or cold intolerance, Polydipsia, Polyuria Gastrointestinal: Reports: As per HPI. Denies: Abdominal pain, Constipation, Diarrhea, Hematemesis, Hematochezia, Melena, Nausea, Vomiting Genitourinary: Reports: As per HPI. Denies: Abnormal menses, Discharge, Dyspareunia, Dysuria, Frequency, Hematuria, Incontinence, Retention, Urgency Musculoskeletal: Reports: As per HPI. Denies: Arthralgia, Back pain, Gout, Joint swelling, Myalgia, Neck pain Skin: Reports: As per HPI. Denies: Bruising, Change in color, Change in hair/ nails, Lesions, Pruritus, Rash Neurological: Reports: As per HPI. Denies: Abnormal gait, Confusion, Headache, Numbness, Paresthesias, Seizure, Tingling, Tremors, Vertigo, Weakness Psychiatric: Reports: As per HPI. Denies: Anxiety, Auditory hallucinations, Depression, Homicidal thoughts, Suicidal thoughts, Visual hallucinations Hematological/Lymphatic: Reports: As per HPI. Denies: Anemia, Blood Clots, Easy bleeding, Easy bruising, Swollen glands Past Medical History - SOCIAL HISTORY Smoking Status: Never smoker Alcohol Use: None Drug Use: None - RESPIRATORY Hx Respiratory Disorders: No Hx Pneumonia: Yes (20 years ago) - CARDIOVASCULAR Hx Cardio Disorders: Yes Hx Cardiac Cath: Yes Hx Hypertension: Yes Comment:: hypercholesteremia - NEURO Hx Neuro Disorders: Yes Hx Neuropathy: Yes - GI Hx GI Disorders: Yes Hx Reflux: Yes Hx Ulcer: Yes - Hx Genitourinary Disorders: Yes Hx Bladder Problem: Yes - ENDOCRINE Hx Endocrine Disorders: Yes Hx Diabetes: Yes - MUSCULOSKELETAL Hx Musculoskeletal Disorders: Yes Hx Arthritis: Yes - PSYCH Hx Psych Problems: No - HEMATOLOGY/ONCOLOGY Hx Hematology/Oncology Disorders: Yes Hx Cancer: Yes (bladder) Family Medical History Any Significant Family History?: No *Diabetes Comment: uncle Hx Heart Disease: Father, Brother/Sister Physical Exam - General General Appearance: Alert, Oriented x3, Cooperative, Mild distress - Head Head exam: Normal inspection - Eye Eye exam: Normal appearance, PERRL, EOMI Pupils: Normal accommodation - ENT ENT exam: Normal exam, Mucous membranes moist, Normal external ear exam, Normal orophraynx Ear exam: Normal external inspection. negative: External canal tenderness Nasal Exam: Normal inspection. negative: Discharge, Sinus tenderness Mouth exam: Normal external inspection, Tongue normal Teeth exam: Normal inspection. negative: Dental caries Throat exam: Normal inspection. negative: Tonsillar erythema, Tonsillar exudate - Neck Neck exam: Normal inspection, Full ROM. negative: Tenderness - Respiratory Respiratory exam: Normal lung sounds bilaterally. negative: Respiratory distress - Cardiovascular Cardiovascular Exam: Regular rate, Normal rhythm, Normal heart sounds - GI/Abdominal GI/Abdominal exam: Soft, Normal bowel sounds. negative: Tenderness - Rectal Rectal exam: Deferred - exam: Deferred - Extremities Extremities exam: Normal inspection, Full ROM, Normal capillary refill, Tenderness - Back Back exam: Reports: Normal inspection, Full ROM. Denies: Muscle spasm, Rash noted, Tenderness - Neurological Neurological exam: Alert, CN II-XII intact, Normal gait, Oriented X3 - Psychiatric Psychiatric exam: Normal affect, Normal mood - Skin Skin exam: Dry, Intact, Normal color, Warm Course Vital Signs 10/04/17 20:30 Pulse Rate 83 Respiratory 25 H Rate Blood Pressure 177/84 Pulse Ox 97 - Reevaluation(s) Reevaluation #1: 10/05/17 00:07 symptoms have resolved except for occasional word searching Medical Decision Making - Lab Data Result diagrams: 10/04/17 21:05 10/04/17 21:05 Disposition Disposition: Transfer Clinical Impression: TIA (transient ischemic attack) Qualifiers: Transient cerebral ischemia type: unspecified Qualified Code(s): G45.9 - Transient cerebral ischemic attack, unspecified Disposition: Acute Care Hospital Transfer Transfer To: [facility] Reason For Transfer: stroke Accepting Physician: dr brar Time Discussed w/Accepting Physician: 00:01 Forms: Patient Portal Access Quality - Quality Measures Quality Measures: N/A - Blood Pressure Screening Does Patient Have Any of the Following: Active Dx of HTN Blood Pressure Classification: Pre-Hypertensive BP Reading Systolic Measurement: 177 Diastolic Measurement: 84 Screening for High Blood Pressure: Patient Exclusion, Hx of HTN [V3242]
[2017-10-04 21:26] LABS: BLOOD UREA NITROGEN 20 mg/dL (8-23); CREATININE 0.9 mg/dL (0.5-0.9); EST GLOMERULAR FILTRATION RATE > 60 mL/min
[2017-10-04 21:27] LABS: TOTAL PROTEIN 6.4 g/dL (6.6-8.7)
[2017-10-04 21:29] LABS: GLUCOSE,RANDOM 167 mg/dL (74-109)
[2017-10-04 21:32] LABS: ALBUMIN 3.9 g/dL (4.0-5.0); ALKALINE PHOSPHATASE 72 U/L (35-104); ALT/SGPT 19 U/L (<33); AST/SGOT 19 U/L (10.0-35.0)
[2017-10-04 21:38] LABS: ALB/GLOB RATIO 1.6 (1.1-1.8)
[2017-10-04 21:42] LABS: URINE APPEARANCE CLEAR; URINE BILIRUBIN NEGATIVE (NEGATIVE); URINE BLOOD NEGATIVE (NEGATIVE); URINE COLOR YELLOW; URINE GLUCOSE (UA) NEGATIVE (NEGATIVE); URINE KETONE NEGATIVE (NEGATIVE); URINE LEUKOCYTE ESTERASE TRACE (NEGATIVE); URINE NITRITE NEGATIVE (NEGATIVE); URINE PROTEIN NEGATIVE (NEGATIVE); URINE UROBILINOGEN 0.2 E.U./dL (0.20 - 1.00)
[2017-10-04 21:51] LABS: URINE EPITHELIAL CELLS 0 - 2 (FEW); URINE WBC 0 - 2 (0-2/hpf)
[2017-10-04] MEDS ORDERED: KETOROLAC 30 MG/ML VIAL IVP ONE (22:08)
[2017-10-05] MEDS ORDERED: ASPIRIN 81 MG CHEWABLE TABLET PO ONE (00:05)
--- NOTE | 2017-10-06 19:08 | CT SCAN REPORT ---
EXAM: CT SCAN HEAD WO CONTRAST HISTORY: CONFUSION. TECHNIQUE: Serial axial CT scan of the head was performed at 2.5 mm intervals from the base of the skull to the apex without the use of intravenous contrast. Sagittal and coronal reconstructions are provided. No comparison CT's are available. FINDINGS: The ventricles, cisterns, sulci appear within normal limits for size , shape, and attenuation. There is no mass or mass effect. There are findings suggestive of mild to moderate periventricular and subcortical white matter chronic small vessel ischemic changes. There is no CT evidence of intra or extraaxial fluid collection to suggest bleeding. Bone windows demonstrate no CT evidence of a fracture or dislocation of the skull. Paranasal sinuses demonstrate air fluid levels within the inferior left maxillary sinus. Clinical correlation for sinusitis is recommended. IMPRESSION: MILD TO MODERATE PERIVENTRICULAR AND SUBCORTICAL WHITE MATTER CHRONIC SMALL VESSEL ISCHEMIC CHANGES ARE NOTED WITHOUT CT EVIDENCE OF AN ACUTE INTRACRANIAL PROCESS. JOB NUMBER: [id number] MTDD
== END 2017-10-05 01:25 | disposition short-term general hospital (02) ==
LOC: ER 20:26
DX: G45.9 Transient cerebral ischemic attack, unspecified (principal); R41.0 Disorientation, unspecified; I10 Essential (primary) hypertension; E11.9 Type 2 diabetes mellitus without complications; Z79.4 Long term (current) use of insulin
CPT/HCPCS: 99285 ×2; 96374; 82550; 85025; 85651; 80053; 81001; 70450; 93005; 93010; J1885

== ENCOUNTER 2019-04-03 05:15 | Emergency (ER) | payer MEDICARE ==
--- NOTE | 2019-04-03 05:26 | Emergency Department Record ---
History of Present Illness - General Source: Patient Mode of Arrival: Ambulatory Limitations: No limitations - History of Present Illness Initial comments: 88 yo female presents with intermittent left arm pain. The pain woke her up around 3am. The pain is currently gone. She reports this pain has been coming and going the last three months. The pain last a few minutes to a few hours. It typically will resolve if she takes ibuprofen. No chest pain or shortness of breath. No exertion related pain. She states it hurts to palpate at the shoulder or upper arm and hurt to raise the arm upwards. She reports she has a history of CAD of a cardiac stent about 5 years ago. This was discovered with progressive shortness of breath at that time. She is not have any similar symptoms like that over the last three months. Her last stress test was 03/24/2017. She had a normal Myocardial Perfusion Study. Dr Santos is her [place] rdiologist. Dr Jimenez is her PCP. She denies any other current changes in her health. No new fatigue or dypnea on exertion. MD Complaint: Extremity pain -: Hour(s) (2) Location: Left, Arm History of Same: Yes -: Yes Myalgia Radiation: Proximal Quality: Aching Consistency: Now resolved Improves with: Nothing Worsens with: Nothing Associated Symptoms: Denies other symptoms <REID HUANG - Last Filed: 04/03/19 06:36> <Verónica Orr - Last Filed: 04/03/19 09:19> - General Chief complaint: Pain Stated complaint: LEFT ARM PAIN Time Seen by Provider: 04/03/19 05:16 - Related Data Allergies Allergy/AdvReac Type Severity Reaction Status Date / Time codeine Allergy Unknown ALTERED Verified 10/04/17 20:30 MENTAL STATUS Review of Systems Constitutional: Denies: Chills, Fever, Malaise, Weakness Eyes: Denies: Eye discharge ENT: Denies: Congestion, Throat pain Respiratory: Denies: Cough, Dyspnea, Hemoptysis, Stridor, Wheezes Cardiovascular: Denies: Chest pain, Dyspnea on exertion, Edema, Palpitations, S yncope Endocrine: Denies: Fatigue, Polydipsia, Polyuria Gastrointestinal: Denies: Abdominal pain, Diarrhea, Nausea, Vomiting Musculoskeletal: Reports: As per HPI, Myalgia. Denies: Arthralgia, Back pain, Joint swelling Skin: Denies: Bruising, Change in color, Rash Neurological: Denies: Headache Psychiatric: Denies: Anxiety Hematological/Lymphatic: Denies: Easy bleeding, Easy bruising <SALREID - Last Filed: 04/03/19 06:36> Past Medical History - SOCIAL HISTORY Smoking Status: Never smoker Drug Use: None - RESPIRATORY Hx Respiratory Disorders: No Hx Pneumonia: Yes (20 years ago) - CARDIOVASCULAR Hx Cardio Disorders: Yes Hx Cardiac Cath: Yes Hx Hypertension: Yes Comment:: hypercholesteremia - NEURO Hx Neuro Disorders: Yes Hx Neuropathy: Yes - GI Hx GI Disorders: Yes Hx Reflux: Yes Hx Ulcer: Yes - Hx Genitourinary Disorders: Yes Hx Bladder Problem: Yes - ENDOCRINE Hx Endocrine Disorders: Yes Hx Diabetes: Yes - MUSCULOSKELETAL Hx Musculoskeletal Disorders: Yes Hx Arthritis: Yes - PSYCH Hx Psych Problems: No - HEMATOLOGY/ONCOLOGY Hx Hematology/Oncology Disorders: Yes Hx Cancer: Yes (bladder) <SALREID - Last Filed: 04/03/19 06:36> Family Medical History *Diabetes Comment: uncle Hx Heart Disease: Father, Brother/Sister <SALREID - Last Filed: 04/03/19 06:36> Physical Exam - General General Appearance: Alert, Oriented x3, Cooperative, No acute distress, Other (Well appearing, conversational, relaxed) Limitations: No limitations - Head Head exam: Atraumatic, Normal inspection - Eye Eye exam: Normal appearance, PERRL. negative: Conjunctival injection, Scleral icterus - ENT ENT exam: Normal exam, Mucous membranes moist Ear exam: Normal external inspection Nasal Exam: Normal inspection Mouth exam: Normal external inspection - Neck Neck exam: Normal inspection, Full ROM. negative: Tenderness - Respiratory Respiratory exam: Normal lung sounds bilaterally. negative: Chest wall tenderness, Decreased breath sounds, Respiratory distress, Rhonchi, Stridor, Wheezes - Cardiovascular Cardiovascular Exam: Regular rate, Normal rhythm, Normal heart sounds Peripheral Pulses: 2+: Radial (R), Radial (L) - GI/Abdominal GI/Abdominal exam: Soft. negative: Tenderness - Rectal Rectal exam: Deferred - exam: Deferred - Extremities Extremities exam: Normal inspection, Full ROM, Normal capillary refill, Tenderness, Other (It hurts for her to raise her left arm). negative: Calf tenderness, Joint swelling, Pedal edema Image of Full Body: 1 - tender in the left upper chest into the shoulder on the left. she is not tender on the right. normal inspection, no LUE edema. symmetric radial pulses - Back Back exam: Denies: CVA tenderness (R), CVA tenderness (L), Paraspinal tenderness, Tenderness, Vertebral tenderness - Neurological Neurological exam: Alert, Oriented X3. negative: Altered, Motor sensory deficit - Psychiatric Psychiatric exam: Normal affect, Normal mood. negative: Agitated, Anxious - Skin Skin exam: Dry, Intact, Normal color, Warm. negative: Cyanosis, Diaphoretic, Erythema, Mottled <REID HUANG - Last Filed: 04/03/19 06:36> Course - Reevaluation(s) Reevaluation #1: EKG #1: 05:15 Rate: 68 Rhythm: sinus [place]: left Intervals: normal ST segments: no acute ST changes Prior: no significant changes from 10/07/17 The patient was seen and examined. The symptoms are atypical for unstable angina or AMI. The pain is reproducible. No significant changes on the EKG. No new dyspnea on exertion or any other exertion related symptoms. 04/03/19 05:54 04/03/19 06:05 The labs were reviewed No acute changes of the CBC The CMP was reviewed. The Glucose was 174 The troponin was normal. 04/03/19 06:36 The results were discussed with the patient. I discussed the options of repeat cardiac enzymes or transfer for more aggressive testing such as a stress test. The symptoms are atypical enough that with discussion with the patient she chooses repeat enzymes. 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 2nd troponin is neg <Verónica Orr Alexis - Last Filed: 04/03/19 09:19> Medical Decision Making - Lab Data Result diagrams: 04/03/19 05:35 04/03/19 05:35 <REID HUANG - Last Filed: 04/03/19 06:36> - Lab Data Result diagrams: 04/03/19 05:35 04/03/19 05:35 Lab Results 04/03/19 04/03/19 04/03/19 Range/Units 05:35 05:35 05:35 WBC 6.4 (4.2-12.2) K/uL RBC 4.12 (3.80-5.40) M/uL Hgb 12.5 (11.6-16.0) gm/dl Hct 39.3 (35.0-47.0) % MCV 95.4 (81-97) fl MCH 30.3 (27-33) pg MCHC 31.8 L (32-36) g/dl RDW 12.6 (11.5-14.5) % Plt Count 157 (130-400) K/uL MPV 10.8 H (7.4-10.4) fl Gran % 68.4 (47-80) % Lymphocytes % 18.1 (16-45) % Monocytes % 8.3 (0-9) % Eosinophils % 4.4 (0-6) % Basophils % 0.8 (0-6) % Absolute Neutrophils 4.38 PT 10.3 (9.5-12.1) SECONDS INR 1.0 APTT 28.1 (24.5-39.1) SECONDS Sodium 141 (136-145) mmol/L Potassium 4.0 (3.4-4.5) mmol/L Chloride 99 (98-107) mmol/L Carbon Dioxide 30.0 H (22-29) mmol/L Anion Gap 12.0 (7-16) BUN 29 H (8-23) mg/dL Creatinine 1.0 H (0.5-0.9) mg/dL Estimated GFR 56 mL/min Random Glucose 172 H (74-109) mg/dL Calcium 9.1 (8.8-10.2) mg/dL Total Bilirubin 0.40 (0.2-1.0) mg/dL AST 21 (10.0-35.0) U/L ALT 19 (<33) U/L Alkaline Phosphatase 81 (35-104) U/L Troponin T < 0.010 (0-0.010) ng/mL Total Protein 6.3 L (6.6-8.7) g/dL Albumin 4.0 (4.0-5.0) g/dL Globulin 2.3 (1.4-4.8) gm/dL Albumin/Globulin Ratio 1.7 (1.1-1.8) 04/03/19 Range/Units 08:30 WBC (4.2-12.2) K/uL RBC (3.80-5.40) M/uL Hgb (11.6-16.0) gm/dl Hct (35.0-47.0) % MCV (81-97) fl MCH (27-33) pg MCHC (32-36) g/dl RDW (11.5-14.5) % Plt Count (130-400) K/uL MPV (7.4-10.4) fl Gran % (47-80) % Lymphocytes % (16-45) % Monocytes % (0-9) % Eosinophils % (0-6) % Basophils % (0-6) % Absolute Neutrophils PT (9.5-12.1) SECONDS INR APTT (24.5-39.1) SECONDS Sodium (136-145) mmol/L Potassium (3.4-4.5) mmol/L Chloride (98-107) mmol/L Carbon Dioxide (22-29) mmol/L Anion Gap (7-16) BUN (8-23) mg/dL Creatinine (0.5-0.9) mg/dL Estimated GFR mL/min Random Glucose (74-109) mg/dL Calcium (8.8-10.2) mg/dL Total Bilirubin (0.2-1.0) mg/dL AST (10.0-35.0) U/L ALT (<33) U/L Alkaline Phosphatase (35-104) U/L Troponin T < 0.010 (0-0.010) ng/mL Total Protein (6.6-8.7) g/dL Albumin (4.0-5.0) g/dL Globulin (1.4-4.8) gm/dL Albumin/Globulin Ratio (1.1-1.8) <Verónica Orr - Last Filed: 04/03/19 09:19> Disposition Disposition: Discharge <REID HUANG - Last Filed: 04/03/19 06:36> Disposition: Discharge <Verónica Orr - Last Filed: 04/03/19 09:19> Clinical Impression: Left arm pain Disposition: Home, Self-Care Condition: (1) Good Instructions: Shoulder Pain (ED) Additional Instructions: Call your doctor for the next available follow up appointment Review this ER visit and the tests performed with your family doctor Return to the ER for a recheck if worse, any new concerns or questions. take aspirin 81mg a day. Forms: Patient Portal Access Quality - Blood Pressure Screening Does Patient Have Any of the Following: No Blood Pressure Classification: Hypertensive Reading Systolic Measurement: 177 Diastolic Measurement: 91 <REID HUANG - Last Filed: 04/03/19 06:36> - Quality Measures Quality Measures: N/A - Blood Pressure Screening Does Patient Have Any of the Following: Active Dx of HTN Blood Pressure Classification: Hypertensive Reading Systolic Measurement: 177 Diastolic Measurement: 91 Screening for High Blood Pressure: Patient Exclusion, Hx of HTN [G9744] <Verónica Orr - Last Filed: 04/03/19 09:19>
[2019-04-03 05:44] LABS: ABSOLUTE NEUTROPHIL COUNT 4.38; BASO % 0.8 % (0-6); EOS % 4.4 % (0-6); GRAN % 68.4 % (47-80); HEMATOCRIT 39.3 % (35.0-47.0); HEMOGLOBIN 12.5 gm/dl (11.6-16.0); LYMPH % 18.1 % (16-45); MEAN CELL VOLUME 95.4 fl (81-97); MEAN CORPUSCULAR HEMOGLOBIN 30.3 pg (27-33); MEAN CORPUSCULAR HGB CONC 31.8 g/dl (32-36); MEAN PLATELET VOLUME 10.8 fl (7.4-10.4); MONO % 8.3 % (0-9); PLATELET COUNT 157 K/uL (130-400); RED BLOOD COUNT 4.12 M/uL (3.80-5.40); RED CELL DISTRIBUTION WIDTH 12.6 % (11.5-14.5); WHITE BLOOD COUNT W/O DIFF 6.4 K/uL (4.2-12.2)
[2019-04-03 05:52] LABS: PARTIAL THROMBOPLASTIN TIME 28.1 SECONDS (24.5-39.1); PROTHROMBIN TIME (PATIENT) 10.3 SECONDS (9.5-12.1)
[2019-04-03 05:53] LABS: BLOOD UREA NITROGEN 29 mg/dL (8-23); EST GLOMERULAR FILTRATION RATE 56 mL/min
[2019-04-03 05:54] LABS: TOTAL PROTEIN 6.3 g/dL (6.6-8.7)
[2019-04-03 05:56] LABS: GLUCOSE,RANDOM 172 mg/dL (74-109)
[2019-04-03 05:59] LABS: ALB/GLOB RATIO 1.7 (1.1-1.8); ALKALINE PHOSPHATASE 81 U/L (35-104); ALT/SGPT 19 U/L (<33); AST/SGOT 21 U/L (10.0-35.0)
== END 2019-04-03 09:26 | disposition home or self-care (01) ==
LOC: ER 05:15
DX: M79.622 Pain in left upper arm (principal); M25.512 Pain in left shoulder; I25.10 Atherosclerotic heart disease of native coronary artery without angina pectoris; I10 Essential (primary) hypertension; Z95.5 Presence of coronary angioplasty implant and graft
CPT/HCPCS: 80053; 84484; 85025; 85610; 85730; 93005; 93010; 99284; 99285